=== PATIENT | female | born 1935 | race Caucasian/White ===

== ENCOUNTER 2016-12-09 10:42 | Emergency (ER) | payer MEDICARE, OTHER ==
[~2016-12-09] VITALS: Ht 157.5 cm; Wt 72.7 kg
[~2016-12-09 10:42] MED LIST: ATEN25TA PO; CHOL10008 PO; DEXL60CA5 PO; FAMO40OR2 PO; FLUT9.9S NASAL; HYDR25TA4 PO; IBEROGAST PO; LEVO75TA36 PO; MANUKA HONEY PO; RED600TA PO; SPIR25TA3 PO; [UNRECOGNIZED DRUG - CODE] PO
[2016-12-09 10:49] VITALS: PULSE 71; RESP 18; O2SAT 98
[2016-12-09 11:02] LABS: BASOPHILS % (AUTO) 0.7 % (0-3); EOSINOPHILS % (AUTO) 2.2 % (0-5); Mean Corpuscular Hemoglobin 29.6 pg (27.0-35.0); Mean Corpuscular Volume 87.6 fL (81-100); NEUTROPHILS % (AUTO) 53.4 % (40-74); Platelet Count 297 bil/L (150-400)
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
--- NOTE | 2016-12-09 11:17 | DRSVH ---
PROCEDURE: X-RAY CHEST ONE VIEW, PORTABLE ([id number]) INDICATIONS: chest pain TECHNIQUE: One view of the chest was acquired. COMPARISON: [facility], CR, CHEST 1VW (PORTABLE), 10/19/2012, 6:02. [facility], CR, CHEST 1VW (PORTABLE), 02/09/2012, 12:19. FINDINGS: Surgical changes and devices: Cholecystectomy clips. Lungs and pleura: No pleural effusions or pneumothorax. Lungs are clear. Mediastinum: Mediastinal contours appear normal. Heart size is normal. Bones and chest wall: No suspicious bony lesions. Overlying soft tissues appear unremarkable. IMPRESSION: No acute process. Dictated by: Dirk Cárdenas M.D. on 12/09/2016 at 11:14 Approved by: Dirk Cárdenas M.D. on 12/09/2016 at 11:16
[2016-12-09 11:30] LABS: TROPONIN T 0.01 ug/L (0.0-0.011)
[2016-12-09 11:42] LABS: Magnesium 1.5 mg/dL (1.6-2.6)
[2016-12-09 12:32] VITALS: BP 115/57; PULSE 63
== END 2016-12-09 12:03 | disposition home or self-care (01) ==
LOC: SED 10:42
DX: R07.2 Precordial pain (principal); R05 Cough; R06.02 Shortness of breath; I10 Essential (primary) hypertension; I42.9 Cardiomyopathy, unspecified; Z88.1 Allergy status to other antibiotic agents; Z88.2 Allergy status to sulfonamides; Z88.5 Allergy status to narcotic agent; Z88.8 Allergy status to other drugs, medicaments and biological substances